=== PATIENT | male | born 1990 | race Caucasian/White ===

== ENCOUNTER 2016-12-15 13:11 | Emergency (ER) | payer OTHER ==
[2016-12-15] MEDS ORDERED: BENZONATATE 100 MG CAPSULE PO STA (14:27)
[2016-12-15] MEDS ORDERED: DEXAMETHASONE 10 MG/ML VIAL PO STA (14:27)
[2016-12-15] MEDS ORDERED: BENZONATATE 100 MG CAPSULE PO ONE (14:40)
[2016-12-15] MEDS ORDERED: DEXAMETHASONE 10 MG/ML VIAL ONE (14:41)
[2016-12-15 14:49] LABS: RAPID STREP SCREEN REAGENT QC YELLOW (YELLOW)
--- NOTE | 2016-12-15 14:51 | XRAY Preliminary Report ---
Exam: XR Chest 2 View PA/LAT IMPRESSION: No acute disease. [facility] SITE ID: [id number]
--- NOTE | 2016-12-15 14:54 | XRAY Report ---
EXAM: CHEST RADIOGRAPHY EXAM DATE: 12/15/2016 02:41 PM. CLINICAL HISTORY: Cough hemoptysis. COMPARISON: None. TECHNIQUE: 2 views. FINDINGS: Lungs/Pleura: Mildly hyperexpanded. No definite localized infiltrate, consolidation, effusion, or pne umothorax. Mediastinum: Heart and mediastinal contours are unremarkable. Other: None. IMPRESSION: No acute disease. [facility] Referring Provider Line: [phone] SITE ID: [id number]
--- NOTE | 2016-12-15 15:27 | ED Physician Documentation ---
History of Present Illness - Stated complaint Stated Complaint: SPITTING UP BLOOD/FEVER - Chief complaint Chief Complaint: Heent - Additonal information Additional information: hx from pt 26 male sick for several days sore throat congestion heavy cough this AM coughed up blood streaked mucous no travel no leg swelling does smoke Review of Systems Constitutional: denies: Fever, Chills Throat: reports: Sore throat Respiratory: reports: Cough, Hemoptysis Endocrine: denies: Easy bruising / bleeding Immunocompromised: denies: Immunocompromised PD PAST MEDICAL HISTORY - Past Medical History Past Medical History: Yes - Present Medications Home Medications: Ambulatory Orders Medication Instructions Recorded Confirmed Benzonatate [Tessalon] 100 mg PO TID PRN #20 capsule 12/15/16 Levothyroxine [Synthroid] 125 mcg PO QDAC 12/15/16 12/15/16 guaiFENesin/DEXTROMETHORPHAN 10 ml PO Q6H PRN #120 ml 12/15/16 [Robitussin Dm] - Allergies Allergies/Adverse Reactions: Allergies Allergy/AdvReac Type Severity Reaction Status Date / Time No Known Drug Allergies Allergy Verified 12/15/16 13:29 - Social History Does the pt smoke?: Yes Smoking Status: Current every day smoker PD ED PE NORMAL - Vitals Vital signs reviewed: Yes - General General: Alert and oriented X 3 - HEENT HEENT: PERRL, Other (erythema and swelling to pharynx s exudate, no tracheal pain with manip prior thyroid surg scar) - Cardiac Cardiac: RRR - Respiratory Respiratory: No respiratory distress, Clear bilaterally - Extremities Extremities: Normal ROM s pain, No edema, No calf tenderness / cord - Neuro Neuro: Alert and oriented X 3, No motor deficit Results - Vitals Vitals: Vital Signs - 24 hr 12/15/16 13:26 Temperature 36.1 C L Heart Rate 88 Respiratory 16 Rate Blood Pressure 93/62 O2 Saturation 97 Oxygen O2 Source Room air - Labs Labs: Laboratory Tests 12/15/16 14:20 Group A Strep Rapid Negative Departure - Departure Disposition: 01 Home, Self Care Clinical Impression: URI (upper respiratory infection) Qualifiers: URI type: unspecified viral URI Qualified Code(s): J06.9 - Acute upper respiratory infection, unspecified; B97.89 - Other viral agents as the cause of diseases classified elsewhere Condition: Good Instructions: ED URI Viral, ED Hemoptysis Prescriptions: guaiFENesin/DEXTROMETHORPHAN [Robitussin Dm] 10 ml PO Q6H PRN #120 ml PRN Reason: Cough Benzonatate [Tessalon] 100 mg PO TID PRN #20 capsule PRN Reason: to ease cough Comments: The rapid strep test was negative - a formal throat culture will also be run and we will call you if it is positive and you need antibiotics The xray did not show pneumonia nor TB You likely coughed up blood because your throat is so inflamed The steroids we have you in the ER will help decrease the swelling and inflammation in your throat - and also your airways so will help the cough In addition I prescribed several cough medications and a nasal decongestant spray to help you feel better Rest, stay home from work today and tomorrow Follow up with your PMD for a recheck if not better in a week Return if worse - especially if you cough up more than a quarter cup of blood
[2016-12-15 15:37] VITALS: BP 109/47
== END 2016-12-15 15:40 | disposition home or self-care (01) ==
LOC: ED 13:11
DX: J06.9 Acute upper respiratory infection, unspecified (principal); B97.89 Other viral agents as the cause of diseases classified elsewhere; F17.200 Nicotine dependence, unspecified, uncomplicated
CPT/HCPCS: 71020; 87070; 87430; 99283; A9270